=== PATIENT | female | born 2000 | race Caucasian/White ===

== ENCOUNTER 2023-03-13 07:10 | Outpatient (CLI) | payer OTHER, SELFPAY ==
--- NOTE | ~2023-03-13 | XR_ITS ---
XR foot LT min 3V DATE: 03/13/2023 07:30 INDICATION: Left foot pain, distal swelling, first through fourth metatarsal area TECHNIQUE: 3 views COMPARISON: None FINDINGS: No fracture, dislocation, periosteal reaction or bone destruction. Joint spaces are preserv ed. IMPRESSION: No significant bony abnormality Reviewed, dictated and finalized at location A.
== END 2023-03-13 07:11 | disposition home or self-care (01) ==
LOC: ANHIMG 07:19
PROVIDERS: PCP Nurse Practitioner Family; Visit Provider Chiropractor
DX: M79.672 Pain in left foot (principal)
CPT/HCPCS: 73630